=== PATIENT | female | born 1950 | race Caucasian/White ===

== ENCOUNTER 2021-08-07 06:36 | Day surgery (SDC) | payer MEDICARE, MEDICAID ==
[~2021-08-07] VITALS: Ht 165.1 cm; Wt 78.1 kg
[2021-08-07] VITALS (14 sets, daily range): BP systolic 97–163; BP diastolic 61–85
[~2021-08-07 06:36] MED LIST: AMLO5TAB PO; ASPI-1071 PO; ATOR20TA66 PO; DIAZ5TAB22 PO; DIPH-735 PO; HYDR-3686 PO; PER5325T PO; ROPI0.5T4 PO; [UNRECOGNIZED DRUG - CODE] PO
[2021-08-07] MEDS ORDERED: normal saline 1000ml 1,000 ML IV PRN (07:10)
[2021-08-07 08:10] LABS: BASOPHILS # (AUTO) 0.1 X10'3 (0-0.2); BASOPHILS % (AUTO) 1.1 % (0-1); EOSINOPHILS # (AUTO) 0.2 X10'3 (0-0.9); EOSINOPHILS % (AUTO) 2.3 % (0-6); HEMATOCRIT 49.1 % (35.0-45.0); HEMOGLOBIN 16.1 g/dl (12.0-16.0); LYMPHOCYTES # (AUTO) 2.9 X10'3 (1.1-4.8); LYMPHOCYTES % (AUTO) 41.1 % (21-51); MEAN CORPUSCULAR HEMOGLOBIN 30.1 PG (27.0-31.0); MEAN CORPUSCULAR HGB CONC 32.7 g/dL (33.0-36.5); MEAN CORPUSCULAR VOLUME 91.9 FL (78-98); MEAN PLATELET VOLUME 9.3 FL (7.4-10.4); MONOCYTES # (AUTO) 0.5 X10'3 (0-0.9); MONOCYTES % (AUTO) 6.5 % (2-12); NEUTROPHILS # (AUTO) 3.5 X10'3 (1.8-7.7); PLATELET COUNT 238 X10'3 (140-440); RED BLOOD COUNT 5.34 X10'6 (4.20-5.60); RED CELL DISTRIBUTION WIDTH 14.5 % (11.5-14.5); WHITE BLOOD COUNT 7.1 X10'3 (4.5-11.0)
[2021-08-07] MEDS ORDERED: midazolam 1 mg/ML 2ml injection ONE ×3 (08:23→09:52)
[2021-08-07] MEDS ORDERED: LIDOcaine 1%/PF 5ML 10 MG/ML VIAL ONE (08:23)
[2021-08-07] MEDS ORDERED: fentaNYL/PF 50MCG/1 ML 2ML syringe ONE ×3 (08:23→09:52)
[2021-08-07] MEDS ORDERED: iohexol 300 MG/1 ML 50ml polymer ONE ×3 (08:24→10:05)
[2021-08-07] MEDS ORDERED: heparin 1,000 UNITS/NS 500ml 0 ML ONE (08:24)
[2021-08-07] MEDS ORDERED: heparin 1,000 UNITS/NS 500ml 500 ML ONE (08:50)
[2021-08-07 09:41] LABS: ALBUMIN 3.3 G/DL (3.4-5.0); ANION GAP 9 (8-16); BLOOD UREA NITROGEN 18 MG/DL (7-18); BUN/CREATININE RATIO 22.5 (6.6-38.0); CALCIUM 9.1 MG/DL (8.5-10.1); CHLORIDE 110 MMOL/L (99-107); GLUCOSE 111 MG/DL (70-104); POTASSIUM 3.8 MMOL/L (3.5-5.1); SODIUM 143 MMOL/L (135-145); TOTAL CARBON DIOXIDE 24.2 MMOL/L (24-32); eGFR 71 ML/MIN
[2021-08-07] MEDS ORDERED: diphenhydrAMINE 50 mg/ml inj ONE (10:16)
[2021-08-07] MEDS ORDERED: normal saline 1000ml 1,000 ML IV SCH (10:55)
--- NOTE | 2021-08-07 11:45 | NUR ---
Pt c/o back pain on left side (pt states she had this pain prior to her procedure just not as severe and laying flat has made it worse) attempted to help pt reposition. Did not help. Phoned Dr. Abebe and received order for [employer]
[2021-08-07] MEDS ORDERED: HYDROcodone/acetaminophen 10/325mg tab PO ONE (11:50)
[2021-08-07] MEDS ORDERED: hydrOXYzine 25 MG tablet PO PRN (11:55)
--- NOTE | 2021-08-07 12:45 | NUR ---
Pt reports pain not much better. Again assisted pt to reposition. Pt now able to sit up in bed. Pt given cottage cheese and fruit plate, eating without difficulty. Right groin site remains stable. Attempted to phone Dr. Abebe in interventional radiology re: pt reports of pain. No answer. Will continue to try to reach Dr. Abebe.
--- NOTE | 2021-08-07 13:00 | NUR ---
Still unable to reach Dr. Abebe pt eating food, appears to be more comfortable but pt reports continued pain.
[2021-08-07] MEDS ORDERED: ketorolac tromethamine 15mg/ml inj. IV ONE (13:40)
--- NOTE | 2021-08-07 13:40 | NUR ---
Received order form Dr. Abebe for toradol.
--- NOTE | 2021-08-07 13:50 | NUR ---
Toradol IV given. Written and Verbal DC instructions given to pt, pt verbalizes understanding.
--- NOTE | 2021-08-07 14:05 | NUR ---
PIV DC cath intact. Pt reports pain now 4. Pt amb to restroom, gait steady. Right groin site remains stable Pt able to dress self.
--- NOTE | 2021-08-07 14:10 | NUR ---
DC to home, transferred to private car via W/C. Pt able to transfer self to car without assist, gait steady.
[2021-08-07] MEDS ORDERED: ROPINIRole 0.25mg tablet PO SCH (21:00)
[2021-08-07] MEDS ORDERED: amLODIPine 5mg tablet PO SCH (21:00)
[2021-08-07] MEDS ORDERED: diphenhydrAMINE 25mg capsule PO SCH (21:00)
[2021-08-08] MEDS ORDERED: atorvastatin 20mg tablet PO SCH (08:00)
[2021-08-08] MEDS ORDERED: buPROPion 75mg tablet PO SCH (08:00)
[2021-08-08] MEDS ORDERED: aspirin 81mg, enteric-coated 1 TAB TABLET.DR PO SCH (08:00)
== END 2021-08-07 14:10 | disposition home or self-care (01) ==
LOC: SSTAY O 06:36
PROVIDERS: ATTEND Radiology Vascular & Interventional Radiology
DX: I70.201 Unspecified atherosclerosis of native arteries of extremities, right leg (principal); I72.3 Aneurysm of iliac artery; I71.4 Abdominal aortic aneurysm, without rupture; I10 Essential (primary) hypertension; Z79.899 Other long term (current) drug therapy; F17.210 Nicotine dependence, cigarettes, uncomplicated; Z79.82 Long term (current) use of aspirin; Z88.8 Allergy status to other drugs, medicaments and biological substances
CPT/HCPCS: 36415; 37220; 75625; 80048; 85025; 85610; 99152; 99153; C1725; C1760; C1769; C1894; J1200; J1644; J1885; J2250; J3010; J3490; J7030; Q9967; A6213